=== PATIENT | male | born 1940 | race Caucasian/White ===

== ENCOUNTER → 2016-09-10 | Outpatient (CLI) | payer OTHER, BC ==
[~2016-09-10] VITALS: Ht 175.3 cm; Wt 81.6 kg
[~2016-09-10] MED LIST: ALLEGRA ALLERG180 MG PO; ALLEGRA180 MG PO; AMBIEN 5 MG TABL5 M1 PO; ASPIRIN325 PO; ASPRIMOX 325 M325 MG PO; BACLOFEN20 MG PO; CALCIUM + VITA1 EACH PO; CELEBREX 200 M200 M1 PO; CENTRUM SILVER1 EAC2 PO; GAS-X125 MG PO; JANUVIA 50 MG T50 MG PO; LIPITOR 20 MG T20 M1 PO; LISINOPRIL2.5 MG PO; METFORMIN HCL1000 MG PO; MIRALAX17 GM PO; OMEPRAZOLE20 MG PO; REGLAN 10 MG TA10 MG PO; TIZANIDINE HCL 22 M1 PO; VITAMIN D2000 UNIT PO; VITAMINC500 PO; VYTORIN 10-401 EACH PO; ZANAFLEX4 MG PO
--- NOTE | ~2016-09-10 | P ---
[facility] [address] [place] [address] PROCEDURE REPORT Name: BLESSING MARTINEZ Room #: REG [facility]#: [id number] Admission: 09/10/16 Attend Phys: Jovon Rutherford MD Discharge: Date of : 42 Report #: [id number] THIS REPORT FOR: //name// CC: Danya Rutherford DATE OF SERVICE: 09/10/2016 BRIEF HISTORY: The patient is a 76-year-old male with upper abdominal pain persistent on PPI therapy. PREOPERATIVE DIAGNOSIS: Upper abdominal pain. POSTOPERATIVE DIAGNOSIS: Mild diffuse gastritis. MEDICATIONS: Deep with Deep sedation with propofol per anesthesia. SPECIMEN: Biopsies of gastritis. ESTIMATED BLOOD LOSS: 3 mL. PROCEDURE: EGD with biopsy. FINDINGS: Prior to propofol sedation, procedure of upper endoscopy discussed with the patient as well potential risks and its complications. He indicates he understands and desires to proceed. DESCRIPTION OF PROCEDURE: This patient has C4 quadriplegia. Due to difficulty moving the patient, it was decided to go ahead and do the procedure while he was in his motorized chair. In motorized chair, he is able to recline nearly flat. When he was positioned, he was supine and his chest was at about a 20-degree angle, which was felt to be satisfactory. After sedation, the Netrepidi video endoscope was inserted in the cervical esophagus under direct vision without difficulty. Examination of this organ through its entire length revealed normal esophageal mucosa down the squamocolumnar junction. Squamocolumnar junction was inspected and noted to be unremarkable. A hiatus hernia was not seen. The squamocolumnar junction was at about 44 cm. Scope was advanced in the stomach, which was examined on end view as well as retroflexed views. There was a very mild gastritis with some very mild erythema. There may be some chronicity, but no ulcers were seen. There was no evidence of outlet obstruction. No retained solids or liquids in the stomach. There were no ulcers or erosions anywhere in the stomach. In addition, in the gastric body, there were multiple diminutive polyps with hyperplastic appearance. These appeared to be typical hyperplastic polyp extensive use of PPI. They had benign appearance. It was felt there was no need to remove these lesions. Upon retroflexion, the GE junction [address] [address] PROCEDURE REPORT Name: BLESSING MARTINEZ Room #: REG [facility]#: [id number] Admission: 09/10/16 Attend Phys: Jovon Rutherford MD Discharge: Date of : 42 Report #: [id number] was identified and noted to be unremarkable. The pylorus was normal. Duodenal bulb was normal. Postbulbar duodenal sweep was inspected and noted to be within normal limits. At that point, the scope was slowly withdrawn and careful circumferential views obtained. Biopsies obtained of the gastritis. The patient tolerated the procedure well. CONDITION OF THE PATIENT UPON DISCHARGE: Following procedure, the patient drowsy. He will be discharged home when fully ambulatory. INSTRUCTIONS TO THE PATIENT AND FAMILY AT THE TIME OF DISCHARGE: He does have some very mild mucosal changes which may or may not be significant. We will follow up on biopsies. As far as the cause of his pain, I do not identify specific etiology. Again, he is a C4 quadriplegic and he uses a word pressure. It is of note he does not have the pressure at nighttime when in bed. If not recently done, an ultrasound of the abdomen may be helpful as well. He should return to care of Dr. Danya Zacarias and return to see me as needed. Also discussed with the patient the option of a trial basis would be b.i.d. PPI. If symptoms persist, he is to return to see me in followup. By: 1101 1802 Jovon Rutherford MD /brigido
== END ==
LOC: GI 09:31
DX: K29.70 Gastritis, unspecified, without bleeding (principal)
CPT/HCPCS: 62110

== ENCOUNTER → 2016-12-17 | Outpatient (CLI) | payer OTHER, BC | LOC: HYPER 12-14 12:57 | DX: L89.893 Pressure ulcer of other site, stage 3 (principal); G82.21 Paraplegia, complete; I95.9 Hypotension, unspecified; L89.322 Pressure ulcer of left buttock, stage 2; G82.50 Quadriplegia, unspecified; Z87.891 Personal history of nicotine dependence; Z72.89 Other problems related to lifestyle ==

== ENCOUNTER → 2016-12-23 | Outpatient (CLI) | payer OTHER, BC | LOC: HYPER 06:54 | DX: E11.621 Type 2 diabetes mellitus with foot ulcer (principal); L97.521 Non-pressure chronic ulcer of other part of left foot limited to breakdown of skin; E11.622 Type 2 diabetes mellitus with other skin ulcer; L98.411 Non-pressure chronic ulcer of buttock limited to breakdown of skin; L89.892 Pressure ulcer of other site, stage 2; L89.312 Pressure ulcer of right buttock, stage 2; L89.322 Pressure ulcer of left buttock, stage 2; R60.9 Edema, unspecified; G82.21 Paraplegia, complete; I95.9 Hypotension, unspecified; Z87.891 Personal history of nicotine dependence; Z72.89 Other problems related to lifestyle ==

== ENCOUNTER → 2016-12-30 | Outpatient (CLI) | payer OTHER, BC | LOC: HYPER 07:05 | DX: E11.622 Type 2 diabetes mellitus with other skin ulcer (principal); L89.313 Pressure ulcer of right buttock, stage 3; L89.322 Pressure ulcer of left buttock, stage 2; L98.411 Non-pressure chronic ulcer of buttock limited to breakdown of skin; E11.621 Type 2 diabetes mellitus with foot ulcer; L89.893 Pressure ulcer of other site, stage 3; L97.521 Non-pressure chronic ulcer of other part of left foot limited to breakdown of skin; G82.21 Paraplegia, complete; I95.9 Hypotension, unspecified; S24.101D Unspecified injury at T1 level of thoracic spinal cord, subsequent encounter; Z87.891 Personal history of nicotine dependence; Z72.89 Other problems related to lifestyle ==

== ENCOUNTER → 2017-01-14 | Outpatient (CLI) | payer OTHER, BC | LOC: HYPER 07:04 | DX: L89.893 Pressure ulcer of other site, stage 3 (principal); L89.222 Pressure ulcer of left hip, stage 2; L89.213 Pressure ulcer of right hip, stage 3; E11.622 Type 2 diabetes mellitus with other skin ulcer; L97.821 Non-pressure chronic ulcer of other part of left lower leg limited to breakdown of skin; L98.491 Non-pressure chronic ulcer of skin of other sites limited to breakdown of skin; I95.9 Hypotension, unspecified; G82.50 Quadriplegia, unspecified; Z79.84 Long term (current) use of oral hypoglycemic drugs; Z87.891 Personal history of nicotine dependence; Z72.89 Other problems related to lifestyle ==

== ENCOUNTER → 2017-01-28 | Outpatient (CLI) | payer OTHER, BC | LOC: HYPER 07:02 | DX: E11.622 Type 2 diabetes mellitus with other skin ulcer (principal); L98.411 Non-pressure chronic ulcer of buttock limited to breakdown of skin; L89.322 Pressure ulcer of left buttock, stage 2; L89.312 Pressure ulcer of right buttock, stage 2; L89.893 Pressure ulcer of other site, stage 3; R60.9 Edema, unspecified; G82.21 Paraplegia, complete; I95.9 Hypotension, unspecified; Z79.84 Long term (current) use of oral hypoglycemic drugs; Z87.891 Personal history of nicotine dependence; Z72.89 Other problems related to lifestyle ==

== ENCOUNTER → 2017-02-18 | Outpatient (CLI) | payer OTHER, BC | LOC: HYPER 06:53 | DX: E11.622 Type 2 diabetes mellitus with other skin ulcer (principal); L98.411 Non-pressure chronic ulcer of buttock limited to breakdown of skin; E11.621 Type 2 diabetes mellitus with foot ulcer; L89.893 Pressure ulcer of other site, stage 3; L97.421 Non-pressure chronic ulcer of left heel and midfoot limited to breakdown of skin; L89.322 Pressure ulcer of left buttock, stage 2; L89.312 Pressure ulcer of right buttock, stage 2; G82.21 Paraplegia, complete; I95.9 Hypotension, unspecified; Z87.891 Personal history of nicotine dependence; Z72.89 Other problems related to lifestyle ==

== ENCOUNTER → 2017-03-02 | Outpatient (CLI) | payer OTHER, BC | LOC: HYPER 07:03 | DX: E11.622 Type 2 diabetes mellitus with other skin ulcer (principal); L89.893 Pressure ulcer of other site, stage 3; L89.322 Pressure ulcer of left buttock, stage 2; L89.312 Pressure ulcer of right buttock, stage 2; L98.411 Non-pressure chronic ulcer of buttock limited to breakdown of skin; Z79.84 Long term (current) use of oral hypoglycemic drugs; G82.21 Paraplegia, complete; I95.9 Hypotension, unspecified; Z87.891 Personal history of nicotine dependence; Z72.89 Other problems related to lifestyle ==

== ENCOUNTER → 2017-03-16 | Outpatient (CLI) | payer OTHER, BC | LOC: HYPER 03-10 11:05 | DX: L89.322 Pressure ulcer of left buttock, stage 2 (principal); L89.313 Pressure ulcer of right buttock, stage 3; L89.629 Pressure ulcer of left heel, unspecified stage; I95.9 Hypotension, unspecified; E11.621 Type 2 diabetes mellitus with foot ulcer; L97.421 Non-pressure chronic ulcer of left heel and midfoot limited to breakdown of skin; L98.411 Non-pressure chronic ulcer of buttock limited to breakdown of skin; G82.50 Quadriplegia, unspecified; Z87.891 Personal history of nicotine dependence; Z72.89 Other problems related to lifestyle; Z79.84 Long term (current) use of oral hypoglycemic drugs ==

== ENCOUNTER → 2017-04-01 | Outpatient (CLI) | payer OTHER, BC ==
[~2017-04-01] MED LIST changes: +TIZANIDINE HCL2 M1 PO
== END ==
LOC: HYPER 07:00
DX: S24.101D Unspecified injury at T1 level of thoracic spinal cord, subsequent encounter (principal); E11.622 Type 2 diabetes mellitus with other skin ulcer; L98.411 Non-pressure chronic ulcer of buttock limited to breakdown of skin; L89.313 Pressure ulcer of right buttock, stage 3; R60.9 Edema, unspecified; G82.21 Paraplegia, complete; I95.9 Hypotension, unspecified; Z79.84 Long term (current) use of oral hypoglycemic drugs; Z87.891 Personal history of nicotine dependence; Z72.89 Other problems related to lifestyle; X58.XXXD Exposure to other specified factors, subsequent encounter

== ENCOUNTER → 2017-05-05 | Outpatient (CLI) | payer OTHER, BC | LOC: HYPER 05-03 07:03 | DX: E11.622 Type 2 diabetes mellitus with other skin ulcer (principal); L98.411 Non-pressure chronic ulcer of buttock limited to breakdown of skin; L89.894 Pressure ulcer of other site, stage 4; I95.9 Hypotension, unspecified; Z79.84 Long term (current) use of oral hypoglycemic drugs; G82.52 Quadriplegia, C1-C4 incomplete; Z87.891 Personal history of nicotine dependence ==

== ENCOUNTER → 2017-05-12 | Outpatient (CLI) | payer OTHER, BC | LOC: HYPER 07:59 | DX: L89.213 Pressure ulcer of right hip, stage 3 (principal); E11.622 Type 2 diabetes mellitus with other skin ulcer; L98.491 Non-pressure chronic ulcer of skin of other sites limited to breakdown of skin; G82.21 Paraplegia, complete; I95.9 Hypotension, unspecified; G82.50 Quadriplegia, unspecified; Z87.891 Personal history of nicotine dependence; Z79.84 Long term (current) use of oral hypoglycemic drugs; Z72.89 Other problems related to lifestyle ==

== ENCOUNTER → 2017-05-26 | Outpatient (CLI) | payer OTHER, BC | LOC: HYPER 06:49 | DX: E11.622 Type 2 diabetes mellitus with other skin ulcer (principal); L98.411 Non-pressure chronic ulcer of buttock limited to breakdown of skin; L89.894 Pressure ulcer of other site, stage 4; R60.9 Edema, unspecified; G82.21 Paraplegia, complete; I95.9 Hypotension, unspecified; Z79.84 Long term (current) use of oral hypoglycemic drugs; Z87.891 Personal history of nicotine dependence; Z72.89 Other problems related to lifestyle ==

== ENCOUNTER → 2017-06-03 | Outpatient (CLI) | payer OTHER, BC | LOC: HYPER 06:28 | DX: E11.622 Type 2 diabetes mellitus with other skin ulcer (principal); L98.411 Non-pressure chronic ulcer of buttock limited to breakdown of skin; L89.313 Pressure ulcer of right buttock, stage 3; G82.21 Paraplegia, complete; Z79.84 Long term (current) use of oral hypoglycemic drugs; Z87.891 Personal history of nicotine dependence; Z72.89 Other problems related to lifestyle ==

== ENCOUNTER → 2017-06-21 | Outpatient (CLI) | payer OTHER, BC ==
[~2017-06-21] MED LIST changes: +ARTIFICIAL TEA1 EACH OPHTHALMIC; +ARTIFICIAL TEAR15 M1 OPHTHALMIC; +DRY MOUTH45 ML PO; +LEVAQUIN 750 M750 MG PO; +PROBIOTIC1 EAC5 PO
== END ==
LOC: HYPER 07:15
DX: L89.313 Pressure ulcer of right buttock, stage 3 (principal); G82.21 Paraplegia, complete; I95.9 Hypotension, unspecified; Z79.84 Long term (current) use of oral hypoglycemic drugs; Z87.891 Personal history of nicotine dependence; Z72.89 Other problems related to lifestyle

== ENCOUNTER → 2017-07-07 | Outpatient (CLI) | payer OTHER, BC | LOC: HYPER 06:48 | DX: E11.622 Type 2 diabetes mellitus with other skin ulcer (principal); L98.411 Non-pressure chronic ulcer of buttock limited to breakdown of skin; L89.313 Pressure ulcer of right buttock, stage 3; R60.9 Edema, unspecified; G82.21 Paraplegia, complete; I95.9 Hypotension, unspecified; Z79.84 Long term (current) use of oral hypoglycemic drugs; Z87.891 Personal history of nicotine dependence; Z72.89 Other problems related to lifestyle ==

== ENCOUNTER → 2017-07-14 | Outpatient (CLI) | payer OTHER, BC | LOC: HYPER 06:48 | DX: E11.622 Type 2 diabetes mellitus with other skin ulcer (principal); L98.411 Non-pressure chronic ulcer of buttock limited to breakdown of skin; L89.894 Pressure ulcer of other site, stage 4; R60.9 Edema, unspecified; G82.21 Paraplegia, complete; I95.9 Hypotension, unspecified; Z79.84 Long term (current) use of oral hypoglycemic drugs; Z87.891 Personal history of nicotine dependence; Z72.89 Other problems related to lifestyle ==

== ENCOUNTER 2017-07-26 05:23 | Inpatient (IN) | payer OTHER, BC ==
[~2017-07-26] VITALS: Ht 172.7 cm; Wt 64.4 kg
[2017-07-26] VITALS (10 sets, daily range): BP systolic 104–165; BP diastolic 56–82
--- NOTE | ~2017-07-26 | HC ---
[facility] [place] [place] [address] CONSULTATION Name: BLESSING MARTINEZ Room #: 404-P [facility] IN M.R.#: [id number] Admission: 07/26/17 Attend Phys: Harman Davis MD, Discharge: Date of : 42 Report #: [id number] THIS REPORT FOR: //name// CC: Danya Davis DATE OF SERVICE: 07/27/2017 CHIEF COMPLAINT: A right ischial pressure ulceration. HISTORY OF PRESENT ILLNESS: This is a 77-year-old male patient with a right ischial pressure ulceration. He had undergone local wound care and debridement and was admitted for diverting colostomy and additional debridement. PAST MEDICAL HISTORY: Positive for quadriplegia, diabetes, hypercholesterolemia and gastroesophageal reflux disease. MEDICATIONS: Include atorvastatin, fexofenadine, sitagliptin, baclofen, celecoxib, metformin, omeprazole, tizanidine and aspirin. ALLERGIES: None. FAMILY HISTORY: Noncontributory. SOCIAL HISTORY: Negative for alcohol or tobacco use. REVIEW OF SYSTEMS: CONSTITUTIONAL: The patient denies fever, chills or weight loss. NEUROLOGIC: The patient does have focal weakness. Denies numbness or tingling. ENT: The patient denies earache, nasal drainage or sore throat. CARDIOVASCULAR: The patient denies chest pain, palpitation or diaphoresis. PULMONARY: The patient denies cough or shortness of breath. GASTROINTESTINAL: The patient denies nausea, vomiting, diarrhea or abdominal pain. ORTHOPEDIC: The patient denies pain or swelling of the extremities. He is aware of the pressure ulceration. He does not have significant pain in this area. PHYSICAL EXAMINATION: VITAL SIGNS: At this time include pulse rate of 70, respiratory rate of 16, blood pressure 136/70 and temperature 98.0. GENERAL: This is a chronically ill-appearing male patient, who appears to be in minimal distress. HEENT: Head normocephalic. Nose and throat are clear. NECK: Supple. LUNGS: Clear. [facility] [address] [place] [address] CONSULTATION Name: BLESSING MARTINEZ Room #: 404-P [facility] IN ..#: [id number] Admission: 07/26/17 Attend Phys: Harman Davis MD, Discharge: Date of : 42 Report #: [id number] HEART: Regular. ABDOMEN: Soft. Bowel sounds are diminished. New colostomy is in place. EXTREMITIES: Examination of the gluteal region demonstrates a stage 4 pressure ulceration of the right ischial region. It is clean. It is deep and approaches close to bone. There is some odor, although the bowens appear to be clean and granulating. LABORATORY DATA: Includes sodium 130, potassium 3.7, chloride 96, CO2 of 27, BUN 15, creatinine 0.8 and glucose 153. White blood cell count 11.5 with a hemoglobin of 10.0 and hematocrit of 30.4. CLINICAL IMPRESSION: 1. Stage 4 right ischial pressure ulceration. 2. 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 3. Diabetes mellitus. 4. Recent placement of a colostomy. RECOMMENDATIONS: At this point in time, we will recommend quarter strength Dakin's moist gauze packing to the right ischial region, to be packed b.i.d. while in the hospital. He will need to be turned and repositioned every 2 hours. Aggressive nutrition with recently placed PEG tube. The patient and are both agreeable to current plan of care. I do appreciate being asked to see him in consultation. <ELECTRONICALLY SIGNED> By: Adryan Wolff MD 07/28/17 1250 [id number] [id number] Adryan Wolff MD /nt
--- NOTE | ~2017-07-26 | S ---
[facility] [place] [address] SURGICAL PATH RPT PROCEDURE Name: BLESSING MARTINEZ Room #: 404-P ADM IN M.R.#: [id number] Admission: 07/26/17 Date of : 44 Discharge: Report #: [id number] Path Case #: [id number] PATHOLOGY REPORT COLLECTION DATE: 07/26/2017 RECEIVED DATE: 07/26/2017 SUBMITTING PHYS: Dr. Harman Davis OTHER PHYS: Dr Danya Zacarias SPECIMEN(S) RECEIVED: A.Right ischial decubitus tissue * * * * * * * * * * * * FINAL DIAGNOSIS: Right ischial decubitus tissue, debridement: - Fibrinoid necrosis as well as degeneration associated with marked acute inflammation, consistent with a decubitus tissue. (IUV:pit; 07/27/2017) PATHOLOGIST: Autumn Almeida M.D. REPORT ELECTRONICALLY SIGNED BY: Autumn Almeida M.D. DATE/TIME: 07/27/2017 14:45 * * * * * * * * * * * * GROSS PATHOLOGY: The specimen is received in formalin, labeled "Blessing Martinez, right ischial decubitus tissue". Received are multiple irregular segments of pale yellow-jolly possible skin admixed with yellow-matos to dark brown soft tissue measuring 3.7 x 2.7 x 1.0 cm in aggregate dimensions. Head Of Product tissue is submitted in cassette A1. (DAC; 07/26/2017) CLINICAL HISTORY: Sacral wound INITIAL CPT CODE(S): A; 21771 Professional services performed by [facility] at [facility] [address] [facility] [address], [place] [address] Technical services performed by [facility] at [address] [place] [address]. [facility] [address] [place] [address] SURGICAL PATH RPT PROCEDURE Name: BLESSING MARTINEZ Room #: 404-P ADM IN M.R.#: [id number] Admission: 07/26/17 Date of : 42 Discharge: Report #: [id number] Path Case #: [id number] [place] [id number] [address] PHONE: [phone] DIRECTOR: Joe Aaron M.D. * * * END OF REPORT * * *
--- NOTE | ~2017-07-26 | O ---
[facility] [address] [place] [address] OPERATIVE REPORT Name: BLESSING MARTINEZ Room #: 404-P [facility] IN .R.#: [id number] Admission: 07/26/17 Attend Phys: Harman Davis MD, Discharge: Date of : 42 Report #: [id number] THIS REPORT FOR: //name// CC: Danya Davis DATE OF SERVICE: 07/26/2017 PREOPERATIVE DIAGNOSES: 1. 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 2. Chronic incomplete flaccid quadriplegia. 3. Diabetes mellitus. 4. Severe protein-calorie malnutrition. POSTOPERATIVE DIAGNOSES: 1. 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 2. Chronic incomplete flaccid quadriplegia. 3. Diabetes mellitus. 4. Severe protein-calorie malnutrition. PROCEDURES PERFORMED: 1. Excisional debridement of skin, subcutaneous tissue, muscle and bone of a right ischial decubitus wound ultimately measuring 3 x 3 cm in dimension (9 square cm). Preoperative wound measurements were similar as the overall dimensions of the wound did not change substantially. 2. Esophagogastroduodenoscopy (EGD) with percutaneous endoscopic gastrostomy (PEG) tube placement. 3. Diverting loop transverse colostomy. SURGEON: Harman Davis M.D. WATER INSPECTOR: ERICKA Jain. ANESTHESIA: General endotracheal anesthesia. ESTIMATED BLOOD LOSS: Minimal (less than 5 mL). COMPLICATIONS: None appreciated. SPECIMENS: All excised tissue to pathology including bone to microbiology to rule out osteomyelitis. INDICATIONS: The patient is a 77-year-old male with quadriplegia and a long-term history of a nonhealing stage IV right ischial decubitus wound. The patient underwent debridement of this wound approximately 3 months ago, but unfortunately has had recurrent necrosis even though the overall wound has [address] [address] OPERATIVE REPORT Name: BLESSING MARTINEZ Room #: 404-P [facility] IN [facility].#: [id number] Admission: 07/26/17 Attend Phys: Harman Davis MD, Discharge: Date of : 42 Report #: [id number] contracted nicely in dimension. At the base of the wound, he has gross necrosis and has feculent stooling within the wound consistently as well as severe protein-calorie malnutrition, thereby indicating the need for debridement, PEG tube placement for enteral supplementation as well as diverting colostomy to divert the fecal stream to prevent chronic ongoing contamination. DESCRIPTION OF PROCEDURE: After explaining the risks, benefits and alternatives of the procedure with the patient in detail in the preoperative holding area and obtaining written consent, the patient was brought to the operating room and placed supine on the operating room table. After conducting a thorough timeout procedure verifying correct patient and procedure, the patient was given general endotracheal anesthesia. Once adequate anesthesia was obtained, his SCDs were hooked up to pneumatic compression device. He was given a preoperative dose of antibiotics in line with the SCIP protocol. The patient was now positioned in the prone position with all pressure points appropriately padded. His right ischial wound was prepped and draped in standard surgical sterile fashion. Electrocautery was now used to circumferentially debride all skin, subcutaneous tissue and nonviable muscle from the periphery of the wound carrying it down to the depths of the wound where there was necrotic tissue overlying bone. This was excised as well including periosteum, which was sent for microbiologic analysis. Hemostasis was assured with electrocautery and there was no further necrotic tissue seen at the completion of the debridement. Thrombin was sprayed into the wound, it was packed tightly with sterile Milena wrap. He was then dressed with 4 x 4s, ABDs and Medipore tape. The patient was then positioned back on the operating room table in the supine position and the left upper quadrant was prepped and draped in standard surgical sterile fashion. The [employer] upper endoscope was used to intubate the oropharynx, was traversed down into the esophagus with ease. I was able to identify and intubate the pylorus and the scope was advanced to second portion of duodenum. Slow and careful withdrawal of the scope showed no evidence of duodenitis, esophagitis, mass lesions or ulcerations. There was mild gastritis near the antrum of the stomach with a few small hyperplastic polyps, but no pathology was seen otherwise. Retroflexion view did show a 2-cm hiatal hernia. Scope was straightened out in the gastric lumen where the stomach was fully insufflated. The lights were turned out in the operating room and an appropriate point was selected for the PEG tube placement in the left upper quadrant as we had easy transillumination through the abdominal wall as well as utilizing manual external ballottement to palpate the appropriate side of placement. This site was anesthetized with 3 mL of 1% plain lidocaine and a 7-mm transverse skin incision was made with a #11 bladed scalpel again after sterilely prepping and draping the abdomen. The needle sheath apparatus was then placed through this incision site, directed through the anterior gastric wall under direct vision whereby the needle was then removed. A wire was placed down the sheath and this was grasped with a loop snare down the EGD scope and the entire EGD scope was removed via the oropharynx, bringing the wire through with it. A 20-Honduran pull type PEG tube was then affixed to the wire, which was then pulled down the mouth and through [facility] [address] [place] [address] OPERATIVE REPORT Name: BLESSING MARTINEZ Room #: 404-P ADM IN M.R.#: [id number] Admission: 07/26/17 Attend Phys: Harman Davis MD, Discharge: Date of : 42 Report #: [id number] the anterior gastric and anterior abdominal bowens. The wire was cut off and the external flange, clamp and end adaptor was applied in standard fashion. The EGD scope was used to intubate the oropharynx once again, traversed down into the stomach where the internal flange was seen to reside against the gastric wall at 3.5 cm at the skin level externally. This was to provide a seal, but without being too tight that would be at risk for ischemia or necrosis and/or erosion. The stomach was now fully desufflated with the EGD scope removed, passed off the field and turned my attention to the colostomy portion of the procedure. The abdomen was once again sterilely prepped and draped in standard surgical sterile fashion. #10 bladed scalpel was used to create a 3-cm longitudinal incision in the right mid abdomen, 2 cm cephalad to the umbilicus and 2 cm to the patient's right. Electrocautery was used to carry this down through skin and subcutaneous tissues to ensure hemostasis until I arrived upon the anterior rectus fascia. This was scored longitudinally as well, revealing the right rectus muscle posteriorly. The rectus muscle was split and the posterior sheath was identified and elevated between hemostats and was opened with Metzenbaum scissors. A finger was then placed in the abdomen and I proceeded to open the entire fascial incision for the 3 cm spread. The transverse colon was seen to reside immediately posterior and this was grasped with a Teo clamp and elevated into the wound. A window was made in the mesocolon and a finger was placed through this. A colostomy retention bar was then placed through the window in the mesentery, which was anchored to the skin using 2-0 nylon in standard fashion. The antimesenteric aspect of the colon was now opened with electrocautery to create a colotomy and this colotomy was extended longitudinally for approximately 3 cm using a hemostat in the colotomy to prevent injury to the back wall of the colon from thermal spread. I now matured the colostomy using 4 interrupted sutures of 3-0 Vicryl, 2 on the superior aspect, 2 on the inferior aspect, 1 on either side of the bar taking full thickness bites of the colon and anchoring it to the dermis on either side of the bar. I then completed maturation of the colostomy using additional 3-0 Vicryl in standard running fashion to anchor the mucocutaneous juncture on both the right and left sides of the colostomy. This was done, taking bites of dermis as well as full thickness bites of the colon in a running fashion. This gave us an excellently oriented diverting loop transverse colostomy. Digital finger intubation of both afferent and efferent limbs showed them to both be patent to a subfascial level. A sterile colostomy appliance was then applied. At the end of the procedure, all instrument, needle and sponge counts were correct. The patient tolerated the procedure without incident, was awakened in the operating room and transitioned to the recovery room in stable condition with no apparent complications. <ELECTRONICALLY SIGNED> By: Harman Davis MD, FACS 07/26/17 1538 1033 1111 Harman Davis MD, FACS /nt
[~2017-07-26 05:23] MED LIST changes: -ARTIFICIAL TEAR15 M1 OPHTHALMIC
[2017-07-27 04:00] VITALS: BP 126/79
[2017-07-27 06:06] LABS: ABSOLUTE NEUTROPHILS 8.9 thou/uL (1.4-8.2); BASOPHILS 0.3 % (0.0-2.0); EOSINOPHILS 0.3 % (0.0-3.0); HEMATOCRIT 30.4 % (42.0-52.0); LYMPHOCYTES 15.4 % (24.0-44.0); MCH 25.5 pg (26.0-34.0); MCHC 32.9 g/dL (28.0-37.0); MCV 77.3 fL (80.0-100.0); MONOCYTES 6.6 % (1.0-8.0); PLATELET COUNT 389 thou/uL (150-400); POLYS 77.4 % (36.0-66.0); RBC 3.94 mil/uL (4.50-6.00); RDW 15.3 % (10.5-14.5); WBC 11.5 thou/uL (4.0-11.0)
[2017-07-27 06:27] LABS: ALBUMIN 1.9 g/dL (3.4-5.0); CALCIUM 8.8 mg/dL (8.5-10.1); CREATININE 0.8 mg/dL (0.7-1.3); POTASSIUM 3.7 mmol/L (3.5-5.1); TOTAL BILIRUBIN 0.3 mg/dL (<0.1-1.0); TOTAL PROTEIN 6.2 g/dL (6.4-8.2)
[2017-07-27 07:13] VITALS: BP 111/57
[2017-07-27 15:30] VITALS: BP 136/73
[2017-07-27 20:00] VITALS: BP 127/61
[2017-07-28 04:00] VITALS: BP 100/40
[2017-07-28 07:50] VITALS: BP 124/56
[2017-07-28 15:10] VITALS: BP 98/58
[2017-07-28 15:20] VITALS: BP 124/56
== END 2017-07-28 19:24 | disposition home health service (06) | DRG 981 ==
LOC: TBA 05:23 → 4N 05:23 → PRE 08:57 → 4N 11:36
PROVIDERS: Surgery
PROC: 0QB20ZZ Excision of Right Pelvic Bone, Open Approach (ICD-10-PCS; principal; 2017-07-26)
PROC: 0DH63UZ Insertion of Feeding Device into Stomach, Percutaneous Approach (ICD-10-PCS; principal; 2017-07-26)
PROC: 0D1L0Z4 Bypass Transverse Colon to Cutaneous, Open Approach (ICD-10-PCS; principal; 2017-07-26)
DX: L89.214 Pressure ulcer of right hip, stage 4 (principal); E43 Unspecified severe protein-calorie malnutrition; G82.52 Quadriplegia, C1-C4 incomplete; G82.54 Quadriplegia, C5-C7 incomplete; K63.5 Polyp of colon; E11.9 Type 2 diabetes mellitus without complications; E78.00 Pure hypercholesterolemia, unspecified; K21.9 Gastro-esophageal reflux disease without esophagitis; K29.70 Gastritis, unspecified, without bleeding; Z79.899 Other long term (current) drug therapy; Z79.84 Long term (current) use of oral hypoglycemic drugs; Z68.21 Body mass index [BMI] 21.0-21.9, adult; Z91.048 Other nonmedicinal substance allergy status
CPT/HCPCS: 10790; 50010; 50101; 50386; 50403; 56524; 56525; 62110; 62900

== ENCOUNTER 2017-08-04 20:01 | Inpatient (IN) | payer OTHER, BC ==
[~2017-08-04] VITALS: Ht 172.7 cm; Wt 78.9 kg
--- NOTE | ~2017-08-04 | HC ---
[facility] [address] [address] CONSULTATION Name: BLESSING MARTINEZ Room #: 362-P [facility] IN M.R.#: [id number] Admission: 08/04/17 Attend Phys: Samuel Abbott MD Discharge: 08/12/17 Date of : 42 Report #: [id number] THIS REPORT FOR: //name// CC: NO PCP Samuel Abbott DATE OF SERVICE: 08/05/2017 REASON FOR CONSULTATION: Hyponatremia. HISTORY OF PRESENT ILLNESS: This 77-year-old gentleman with flaccid quadriplegia secondary to a previous fall a couple of years ago. He had a tunneling right ischial wound, which became troublesome and necrotic over the last several months, he underwent a surgical procedure including a diverting colostomy, wound debridement, and PEG tube placement within the last couple of weeks. After going home, he had a poor appetite. He continued to receive water. He is on Celebrex and he developed hyponatremia with a serum sodium down to 105 without much of an appreciable way of mental status changes. PAST MEDICAL HISTORY: Quadriplegia, diabetes, and spasms. FAMILY HISTORY: Please see old charts. SOCIAL HISTORY: He has caregivers around the clock. His is there at home with him. REVIEW OF SYSTEMS: In general, he has been feeling poorly. He has not been taking much p.o. He denies shortness of breath. There is no chest pain or history of cardiac disease or palpitations. He is not having too much in the way of pain. He is a bit anxious and depressed. PHYSICAL EXAMINATION: GENERAL: This is a chronically ill-appearing gentleman, he is answering some questions. He is alert and oriented. SKIN: Unremarkable. SKELETAL: Flaccid quadriplegia, PEG tube, diverting colostomy and suprapubic catheter all noted. HEENT: Extraocular movements are full. Vision intact. Mucous membranes dry. NECK: Supple. CHEST: Shallow. HEART: Regular. ABDOMEN: Soft. EXTREMITIES: Show no peripheral edema. LABORATORY DATA: Hemoglobin 11.2, sodium 107, potassium 4, chloride 78, bicarbonate 26, BUN 17, and creatinine 0.4. [facility] [address] [place] [address] CONSULTATION Name: BLESSING MARTINEZ Room #: 362-P [facility] IN M.R.#: [id number] Admission: 08/04/17 Attend Phys: Samuel Abbott MD Discharge: 08/12/17 Date of : 42 Report #: [id number] ASSESSMENT: 1. Hyponatremia, likely in the setting of the Celebrex, decreased free water clearance, possibly some volume depletion as well. has been given back some volume, sodium is up very marginally, I will give him just a little bit of 3% saline. I would like to start giving him some tube feedings without any water and likely the hypertonic nature of the of tube feedings down his PEG tube will help correct. No free water will be given. I suspect he will do okay. Once he is off the Celebrex, I suspect his free water clearance will improve hopefully. 2. Decubitus ulcer with recent surgery. 3. Recent diverting colostomy. 4. Flaccid quadriplegia. 5. History of diabetes mellitus. <ELECTRONICALLY SIGNED> By: Aj Law MD 08/17/17 1706 1033 1101 Aj Law MD /nt
--- NOTE | ~2017-08-04 | HC ---
[facility] [address] [address] CONSULTATION Name: BLESSING MARTINEZ Room #: 362-P [facility] IN .R.#: [id number] Admission: 08/04/17 Attend Phys: Samuel Abbott MD Discharge: Date of : 44 Report #: [id number] THIS REPORT FOR: //name// CC: NO PCP Samuel Abbott DATE OF SERVICE: 08/05/2017 CHIEF COMPLAINT: Stage IV pressure ulceration. 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 He has undergone recent debridement as well as PEG tube placement and diverting colostomy. He has been having some bloating and possible ileus at home but was having increasing weakness, presented to the Emergency Department, was found to have severe hyponatremia with a serum sodium level of 105. He was subsequently admitted to the hospital for management and replacement of sodium. I have been asked to see him with regard to ongoing wound care. The patient is a little more lethargic than usual, is slow to answer questions. 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 He has a history of diabetes mellitus and hypercholesterolemia. MEDICATIONS: Include atorvastatin, fexofenadine, sitagliptin, baclofen, Celebrex, metformin, omeprazole, tizanidine and aspirin. ALLERGIES: None. FAMILY HISTORY: Noncontributory. SOCIAL HISTORY: Negative for alcohol or tobacco use, and accompanied by his . REVIEW OF SYSTEMS: CONSTITUTIONAL: Denies fever, chills or weight loss. NEUROLOGICAL: The patient is a quadriplegic. ENT: The patient denies earache, nasal drainage or sore throat. CARDIOVASCULAR: The patient denies pain, palpitations or diaphoresis. PULMONARY: The patient denies cough or shortness of breath. GASTROINTESTINAL: The patient complains of abdominal bloating. No significant pain at this time. GENITOURINARY: The patient denies frequency, urgency of urination. ORTHOPEDIC: The patient is aware of the pressure ulcer of the ischium. [facility] [address] [place] [address] CONSULTATION Name: BLESSING MARTINEZ Room #: 362-P [facility] IN .R.#: [id number] Admission: 08/04/17 Attend Phys: Samuel Abbott MD Discharge: Date of : 44 Report #: [id number] Other systems in a 14-point review of systems are negative. PHYSICAL EXAMINATION: VITAL SIGNS: At this time include pulse rate of 85, respiration of 16, blood pressure 133/76 and temperature 97.5. GENERAL: This is a chronically ill-appearing male patient who appears to be in minimal distress. HEENT: Examination of the head normocephalic. Extraocular movements clear. Nose and throat are clear. NECK: Supple. LUNGS: Clear. HEART: Regular rhythm. ABDOMEN: Soft, slightly distended. Pelvic region demonstrates stage 4 pressure ulceration of the right ischium, which appears to be fairly clean, was granulating well, some fibrous connective tissue seen in the deep base, is not overtly infected. NEUROLOGICAL: The patient has a flaccid type paralysis. LABORATORY DATA: Includes sodium 107, potassium 4.0, chloride 78, CO2 26, BUN 17, creatinine 0.4 and glucose 102. Total protein 4.9. Albumin is low at 1.6. He is actually decreased from his previous hospitalization. White blood cell count 8.7, hemoglobin 11.2 and hematocrit 32.6. CLINICAL IMPRESSION: 1. Stage 4 right ischial pressure ulceration status post surgical debridement. 2. Status post diverting colostomy and status post percutaneous endoscopic gastrostomy tube placement. 3. Severe protein-calorie malnutrition. 4. Severe hyponatremia. RECOMMENDATIONS: At this point in time, patient will be placed on low air loss mattress or a bariatric type bed with turned and repositioned every 2 hours. Fills Puracol Ag to the right ischial ulceration. He will need a slow replacement of sodium is being managed by Internal Medicine and Nephrology. Prevalon boots while he is in bed all questions have been answered. I appreciate being asked to see him in consultation. <ELECTRONICALLY SIGNED> By: Adryan Wolff MD 08/06/17 0755 [id number] 56 Adryan Wolff MD /nt
--- NOTE | ~2017-08-04 | EKG ---
[address] [address] ELECTROCARDIOGRAM REPORT Name: BLESSING MARTINEZ Room #: 362-P ADM IN M.R.#: [id number] Admission: 08/04/17 Attend Phys: Samuel Abbott MD Discharge: Date of : 44 Report #: [id number] THIS REPORT FOR: //name// [facility] ED Test Date: 2017-08-04 Test Time: 20:20:29 Pat Name: BLESSING MARTINEZ Department: Room: 362 Gender: M Stitching Department Supervisor: MZOOK : 1940 Requested By: Kelley Langston Order Number: [id number] MD: Thiago Shore Measurements Intervals [place] Rate: 83 P: 70 SC: 174 QRS: 55 QRSD: 95 T: 44 QT: 366 QTc: 430 Interpretive Statements Sinus rhythm No significant abnormality Compared to ECG 04/22/2017 06:47:55 No significant change was found Electronically Signed On 08-05-2017 8:44:36 [employer] by Thiago Shore [email or web address] <ELECTRONICALLY SIGNED> By: Thiago Shore MD, LOCATED WITHIN [facility] 08/05/17 0844 19 19 Thiago Shore MD, FACC /EPI
[2017-08-04 20:02] VITALS: BP 153/79
[2017-08-04 20:37] LABS: URINE BILIRUBIN NEGATIVE (Negative); URINE BLOOD 2+ (Negative); URINE CLARITY CLEAR; URINE COLOR YELLOW; URINE GLUCOSE-RANDOM* NEGATIVE (Negative); URINE KETONES NEGATIVE (Negative); URINE LEUKOCYTES NEGATIVE (Negative); URINE NITRITE NEGATIVE (Negative); URINE PROTEIN (DIPSTICK) 2+ (Negative); URINE UROBILINOGEN 0.2 E.U./dl (0.2-1.0)
[2017-08-04 20:38] LABS: BASOPHILS 0.2 % (0.0-2.0); EOSINOPHILS 1.1 % (0.0-3.0); HEMATOCRIT 32.6 % (42.0-52.0); HEMOGLOBIN 11.2 gm/dL (14.0-18.0); LYMPHOCYTES 18.9 % (24.0-44.0); MCH 25.7 pg (26.0-34.0); MCHC 34.3 g/dL (28.0-37.0); MONOCYTES 11.2 % (1.0-8.0); PLATELET COUNT 447 thou/uL (150-400); POLYS 68.6 % (36.0-66.0); RBC 4.35 mil/uL (4.50-6.00); RDW 15.2 % (10.5-14.5); WBC 8.7 thou/uL (4.0-11.0)
[2017-08-04 20:48] LABS: BACTERIA None Seen /HPF (None Seen); CALCIUM OXALATE 4-10 Moderate /LPF (None Seen); HYALINE CASTS 0-3 Few /LPF (None Seen); MUCUS 4-6 Moderate strn/LPF (None Seen); SQUAMOUS 0-3 Few /LPF (0-3); URINE RBC 3-10 Few /HPF (0-2); URINE WBC 6-15 Few /HPF (0-5)
[2017-08-04 20:52] LABS: ALBUMIN 1.6 g/dL (3.4-5.0); CALCIUM 6.9 mg/dL (8.5-10.1); CREATININE 0.5 mg/dL (0.7-1.3); POTASSIUM 3.9 mmol/L (3.5-5.1); TOTAL BILIRUBIN 0.2 mg/dL (<0.1-1.0); TOTAL PROTEIN 4.9 g/dL (6.4-8.2)
[2017-08-04 21:17] LABS: CHOLESTEROL 67 mg/dL (<200); HDL CHOLESTEROL 27 mg/dL (>40); LDL CHOLESTEROL 29 mg/dL (<100); TC:HDL 2.5 Ratio (Not establshd); TRIGLYCERIDE 59 mg/dL (<150); VLDL 12 mg/dL (<40)
[2017-08-04 21:58] VITALS: BP 174/81
[2017-08-04 22:15] VITALS: BP 152/85
[2017-08-05 04:00] VITALS: BP 145/84
[2017-08-05 05:42] LABS: CALCIUM 6.8 mg/dL (8.5-10.1); CREATININE 0.4 mg/dL (0.7-1.3)
[2017-08-05 08:17] VITALS: BP 142/81
[2017-08-05 11:34] VITALS: BP 133/76
[2017-08-05 16:49] VITALS: BP 139/80
[2017-08-05] MEDS ORDERED: ARTIFICIAL TEAR15 M1 OPHTHALMIC (17:35)
[2017-08-05 18:27] LABS: ALBUMIN 1.4 g/dL (3.4-5.0); CALCIUM 6.3 mg/dL (8.5-10.1); CREATININE 0.4 mg/dL (0.7-1.3); PHOSPHORUS 2.5 mg/dL (2.5-4.9); POTASSIUM 3.5 mmol/L (3.5-5.1)
[2017-08-05 19:52] VITALS: BP 143/82
[2017-08-06 03:50] VITALS: BP 147/84
[2017-08-06 06:51] LABS: ABSOLUTE NEUTROPHILS 6.8 thou/uL (1.4-8.2); BASOPHILS 0.2 % (0.0-2.0); EOSINOPHILS 1.4 % (0.0-3.0); HEMATOCRIT 30.8 % (42.0-52.0); HEMOGLOBIN 10.8 gm/dL (14.0-18.0); LYMPHOCYTES 16.9 % (24.0-44.0); MCH 26.3 pg (26.0-34.0); MCV 75.1 fL (80.0-100.0); MONOCYTES 10.4 % (1.0-8.0); PLATELET COUNT 451 thou/uL (150-400); POLYS 71.1 % (36.0-66.0); RDW 15.2 % (10.5-14.5); WBC 9.6 thou/uL (4.0-11.0)
[2017-08-06 07:03] LABS: ALBUMIN 1.5 g/dL (3.4-5.0); CALCIUM 6.7 mg/dL (8.5-10.1); CREATININE 0.4 mg/dL (0.7-1.3); PHOSPHORUS 2.7 mg/dL (2.5-4.9); POTASSIUM 3.5 mmol/L (3.5-5.1)
[2017-08-06 07:59] VITALS: BP 149/81
[2017-08-06 11:31] VITALS: BP 150/74
[2017-08-06 15:30] VITALS: BP 146/80
[2017-08-06 20:10] VITALS: BP 138/72
[2017-08-07 04:58] LABS: ALBUMIN 1.5 g/dL (3.4-5.0); CALCIUM 6.9 mg/dL (8.5-10.1); CREATININE 0.4 mg/dL (0.7-1.3); POTASSIUM 3.3 mmol/L (3.5-5.1); TOTAL BILIRUBIN 0.2 mg/dL (<0.1-1.0); TOTAL PROTEIN 4.4 g/dL (6.4-8.2)
[2017-08-07 05:00] VITALS: BP 142/75
[2017-08-07 07:40] VITALS: BP 145/75
[2017-08-07 11:17] VITALS: BP 141/73
[2017-08-07 15:19] VITALS: BP 148/76
[2017-08-07 19:53] VITALS: BP 145/72
[2017-08-08 04:05] VITALS: BP 151/81
[2017-08-08 07:22] VITALS: BP 146/76
[2017-08-08 07:22] LABS: ALBUMIN 1.5 g/dL (3.4-5.0); CALCIUM 7.2 mg/dL (8.5-10.1); CREATININE 0.4 mg/dL (0.7-1.3); PHOSPHORUS 2.8 mg/dL (2.5-4.9); POTASSIUM 3.5 mmol/L (3.5-5.1)
[2017-08-08 11:41] VITALS: BP 133/72
[2017-08-08 15:46] VITALS: BP 139/73
[2017-08-08 20:32] VITALS: BP 133/61
[2017-08-09 04:15] VITALS: BP 157/86
[2017-08-09 05:42] LABS: BASOPHILS 0.5 % (0.0-2.0); EOSINOPHILS 1.9 % (0.0-3.0); HEMATOCRIT 30.6 % (42.0-52.0); HEMOGLOBIN 10.4 gm/dL (14.0-18.0); LYMPHOCYTES 21.3 % (24.0-44.0); MCH 25.8 pg (26.0-34.0); MCV 76.1 fL (80.0-100.0); MONOCYTES 8.2 % (1.0-8.0); PLATELET COUNT 478 thou/uL (150-400); POLYS 68.1 % (36.0-66.0); RBC 4.02 mil/uL (4.50-6.00); RDW 15.3 % (10.5-14.5); WBC 11.7 thou/uL (4.0-11.0)
[2017-08-09 05:57] LABS: ALBUMIN 1.5 g/dL (3.4-5.0); CALCIUM 7.2 mg/dL (8.5-10.1); CREATININE 0.5 mg/dL (0.7-1.3); MAGNESIUM 1.5 mg/dL (1.8-2.4); PHOSPHORUS 2.9 mg/dL (2.5-4.9)
[2017-08-09 08:12] VITALS: BP 137/71
[2017-08-09 11:44] VITALS: BP 131/56
[2017-08-09 15:27] VITALS: BP 129/67
[2017-08-09 19:39] VITALS: BP 133/67
[2017-08-10 03:50] VITALS: BP 132/69
[2017-08-10 06:44] LABS: ALBUMIN 1.5 g/dL (3.4-5.0); CALCIUM 7.2 mg/dL (8.5-10.1); CREATININE 0.5 mg/dL (0.7-1.3); MAGNESIUM 1.7 mg/dL (1.8-2.4); POTASSIUM 4.1 mmol/L (3.5-5.1)
[2017-08-10 07:06] VITALS: BP 133/70
[2017-08-10 07:11] LABS: FOLIC ACID 14.8 ng/mL (8.6-58.9); TSH 4.518 uIU/mL (0.358-3.740)
[2017-08-10 11:17] VITALS: BP 129/66
[2017-08-10 16:00] VITALS: BP 136/72
[2017-08-10 19:06] VITALS: BP 128/65
[2017-08-11 04:09] VITALS: BP 138/68
[2017-08-11 06:22] LABS: ABSOLUTE NEUTROPHILS 7.6 thou/uL (1.4-8.2); BASOPHILS 0.7 % (0.0-2.0); EOSINOPHILS 2.4 % (0.0-3.0); HEMATOCRIT 29.9 % (42.0-52.0); HEMOGLOBIN 10.1 gm/dL (14.0-18.0); LYMPHOCYTES 24.1 % (24.0-44.0); MCH 25.9 pg (26.0-34.0); MCHC 33.7 g/dL (28.0-37.0); MCV 76.9 fL (80.0-100.0); MONOCYTES 8.5 % (1.0-8.0); PLATELET COUNT 484 thou/uL (150-400); POLYS 64.3 % (36.0-66.0); RBC 3.89 mil/uL (4.50-6.00); RDW 15.7 % (10.5-14.5); WBC 11.8 thou/uL (4.0-11.0)
[2017-08-11 06:45] LABS: ALBUMIN 1.6 g/dL (3.4-5.0); CALCIUM 7.5 mg/dL (8.5-10.1); CREATININE 0.6 mg/dL (0.7-1.3); PHOSPHORUS 3.1 mg/dL (2.5-4.9); POTASSIUM 4.4 mmol/L (3.5-5.1)
[2017-08-11 07:53] VITALS: BP 139/69
[2017-08-11 12:50] VITALS: BP 137/65
[2017-08-11 16:05] VITALS: BP 138/73
[2017-08-11 19:35] VITALS: BP 127/71
[2017-08-12 02:52] VITALS: BP 145/72
[2017-08-12 08:12] VITALS: BP 139/72
[2017-08-12 09:59] LABS: ABSOLUTE NEUTROPHILS 7.5 thou/uL (1.4-8.2); BASOPHILS 0.6 % (0.0-2.0); EOSINOPHILS 3.1 % (0.0-3.0); HEMATOCRIT 27.9 % (42.0-52.0); HEMOGLOBIN 9.5 gm/dL (14.0-18.0); LYMPHOCYTES 21.5 % (24.0-44.0); MCH 26.2 pg (26.0-34.0); MCHC 33.8 g/dL (28.0-37.0); MCV 77.5 fL (80.0-100.0); MONOCYTES 8.9 % (1.0-8.0); PLATELET COUNT 460 thou/uL (150-400); POLYS 65.9 % (36.0-66.0); WBC 11.5 thou/uL (4.0-11.0)
[2017-08-12 10:11] LABS: CALCIUM 8.1 mg/dL (8.5-10.1); CREATININE 0.6 mg/dL (0.7-1.3); POTASSIUM 4.6 mmol/L (3.5-5.1)
[2017-08-12 10:16] LABS: MAGNESIUM 1.8 mg/dL (1.8-2.4); PHOSPHORUS 3.7 mg/dL (2.5-4.9)
[2017-08-12 12:01] VITALS: BP 133/75
[2017-08-12 12:51] VITALS: BP 133/75
== END 2017-08-12 15:52 | DRG 640 ==
LOC: ER 20:01 → EROBS 21:20 → 3W 21:20
PROVIDERS: Family Medicine; Hospitalist; Internal Medicine Nephrology; Nurse Practitioner Acute Care; Physician Assistant; Registered Nurse
DX: E87.1 Hypo-osmolality and hyponatremia (principal); G82.50 Quadriplegia, unspecified; E43 Unspecified severe protein-calorie malnutrition; G93.40 Encephalopathy, unspecified; L89.304 Pressure ulcer of unspecified buttock, stage 4; K56.7 Ileus, unspecified; N39.0 Urinary tract infection, site not specified; K21.9 Gastro-esophageal reflux disease without esophagitis; E78.5 Hyperlipidemia, unspecified; E11.649 Type 2 diabetes mellitus with hypoglycemia without coma; R53.81 Other malaise; F03.90 Unspecified dementia, unspecified severity, without behavioral disturbance, psychotic disturbance, mood disturbance, and anxiety; Z87.891 Personal history of nicotine dependence; Z68.26 Body mass index [BMI] 26.0-26.9, adult; Z88.8 Allergy status to other drugs, medicaments and biological substances; Z93.3 Colostomy status
CPT/HCPCS: 10879

== ENCOUNTER → 2017-09-15 | Outpatient (CLI) | payer OTHER, BC ==
[~2017-09-15] MED LIST changes: +ARTIFICIAL TEAR15 M1 OPHTHALMIC
== END ==
LOC: HYPER 08-11 13:07
DX: E11.621 Type 2 diabetes mellitus with foot ulcer (principal); L89.313 Pressure ulcer of right buttock, stage 3; L98.411 Non-pressure chronic ulcer of buttock limited to breakdown of skin; L84 Corns and callosities; G82.50 Quadriplegia, unspecified; Z87.891 Personal history of nicotine dependence; Z79.84 Long term (current) use of oral hypoglycemic drugs

== ENCOUNTER → 2017-10-13 | Outpatient (CLI) | payer OTHER, BC | LOC: HYPER 06:43 | DX: E11.622 Type 2 diabetes mellitus with other skin ulcer (principal); L98.411 Non-pressure chronic ulcer of buttock limited to breakdown of skin; L89.313 Pressure ulcer of right buttock, stage 3; L89.894 Pressure ulcer of other site, stage 4; R60.9 Edema, unspecified; G82.21 Paraplegia, complete; I95.9 Hypotension, unspecified; Z79.84 Long term (current) use of oral hypoglycemic drugs; Z87.891 Personal history of nicotine dependence ==

== ENCOUNTER → 2017-11-10 | Outpatient (CLI) | payer OTHER, BC | LOC: HYPER 07:03 | DX: L89.313 Pressure ulcer of right buttock, stage 3 (principal); I95.9 Hypotension, unspecified; G82.21 Paraplegia, complete; Z87.891 Personal history of nicotine dependence; Z79.84 Long term (current) use of oral hypoglycemic drugs ==

== ENCOUNTER → 2018-07-19 | Outpatient (CLI) | payer OTHER, BC ==
[~2018-07-19] VITALS: Ht 172.7 cm; Wt 77.1 kg
[~2018-07-19] MED LIST changes: +ASPIR 8181 MG PO; +BACLOFEN PUMP INTRATHECA; +DUOFER 28 MG TA28 MG PO; +FLONASE 0.05%50 MCG NASAL; +LIORESAL 10 MG10 MG PO; +STOOL SOFTENER100 MG PO
--- NOTE | 2018-07-20 09:04 | O ---
[facility] Mara Baer [place] [address] OPERATIVE REPORT Name: BLESSING MARTINEZ Room #: [facility]#: [id number] Admission: 07/19/18 Attend Phys: Harman Davis MD, Discharge: Date of : 44 Report #: [id number] THIS REPORT FOR: //name// CC: Harman Waltonyelena Shelby DATE OF SERVICE: 07/19/2018 PREOPERATIVE DIAGNOSES: 1. Indwelling PEG tube with resolved dysphagia. 2. Healed stage 4 sacral ischial decubitus wounds. POSTOPERATIVE DIAGNOSES: 1. Indwelling PEG tube with resolved dysphagia. 2. Healed stage 4 sacral ischial decubitus wounds. 3. Desire for PEG tube removal. PROCEDURE PERFORMED: Thorough esophagogastroduodenoscopy (EGD) with endoscopic removal of indwelling percutaneous endoscopic gastrostomy (PEG) tube. SURGEON: Harman Davis MD TANK CREWMEMBER: None. ANESTHESIA: Monitored anesthesia care. ESTIMATED BLOOD LOSS: None. COMPLICATIONS: None. SPECIMENS: PEG tube. INDICATIONS: The patient is a 78-year-old male who has resolved dysphagia and improved severe protein-calorie malnutrition with a healed sacral ischial decubitus wound and as he has not used his PEG tube for several months, desires removal. The patient is on an aspirin and blood thinners and has refused traumatic removal through the abdominal wall and as such, indication was for the endoscopic removal today. DESCRIPTION OF PROCEDURE: After explaining the risks, benefits and alternatives of the procedure with the patient in detail and obtaining consent, the patient was brought to the endoscopy suite supine on his hospital cart. After conducting a thorough timeout procedure, verifying correct patient and procedure, the patient was given monitored anesthesia care. Once adequate anesthesia was obtained, his SCDs were hooked up to pneumatic compression device and he was given monitored anesthesia care. The patient's abdomen was exposed [address] [address] OPERATIVE REPORT Name: BLESSING MARTINEZ Room #: [facility]#: [id number] Admission: 07/19/18 Attend Phys: Harman Davis MD, Discharge: Date of : 42 Report #: [id number] and the TOMODOn upper endoscope was used to intubate the oropharynx with ease. The scope was advanced to second portion of duodenum where slow careful withdrawal showed no evidence of duodenitis, gastritis, esophagitis, mass lesions or ulcerations. Retroflexion view of the scope showed a small hiatal hernia. The scope was straightened out, looking at the internal bumper from the PEG tube. The external flange was loosened and a loop snare was placed on the EGD scope and was used to lasso the internal bumper. The PEG tube was then pulled up and cut at the skin level with scissors, releasing the internal bumper which was maintained control with the loop snare. The entire endoscope was removed via the oropharynx, bringing the internal bumper with it. The PEG tube was removed in full. The scope was advanced back into the gastric lumen, where the stomach was fully desufflated and then removed completing the procedure. At the end of the procedure, all instrument, needle and sponge counts were correct. The patient tolerated the procedure without incident, was awakened in the endoscopy suite and transitioned to the recovery room in stable condition with no apparent complications. <ELECTRONICALLY SIGNED> By: Harman Davis MD, FACS 07/20/18 0904 0945 1000 Harman Davis MD, FACS /nt
== END | disposition home or self-care (01) ==
LOC: GI 06:42
DX: Z43.1 Encounter for attention to gastrostomy (principal); R13.10 Dysphagia, unspecified; K21.9 Gastro-esophageal reflux disease without esophagitis; E11.9 Type 2 diabetes mellitus without complications; E78.00 Pure hypercholesterolemia, unspecified; E78.5 Hyperlipidemia, unspecified; G82.50 Quadriplegia, unspecified; Z79.82 Long term (current) use of aspirin; Z79.01 Long term (current) use of anticoagulants; Z91.040 Latex allergy status; Z87.891 Personal history of nicotine dependence; Z98.890 Other specified postprocedural states; Z85.828 Personal history of other malignant neoplasm of skin; Z98.52 Vasectomy status; Z98.0 Intestinal bypass and anastomosis status; Z79.899 Other long term (current) drug therapy
CPT/HCPCS: 62110; 62900

== ENCOUNTER → 2021-02-10 | Outpatient (CLI) | payer OTHER, BC | LOC: HYPER 08:05 | PROVIDERS: ATTEND Emergency Medicine | DX: E11.622 Type 2 diabetes mellitus with other skin ulcer (principal); L89.322 Pressure ulcer of left buttock, stage 2; L98.411 Non-pressure chronic ulcer of buttock limited to breakdown of skin; R60.9 Edema, unspecified; G82.20 Paraplegia, unspecified; I95.9 Hypotension, unspecified; F41.9 Anxiety disorder, unspecified; Z87.891 Personal history of nicotine dependence; Z79.82 Long term (current) use of aspirin ==

== ENCOUNTER → 2021-04-01 | Outpatient (CLI) | payer OTHER, BC | LOC: HYPER 09:34 | PROVIDERS: ATTEND Emergency Medicine | DX: E11.622 Type 2 diabetes mellitus with other skin ulcer (principal); L89.322 Pressure ulcer of left buttock, stage 2; L98.411 Non-pressure chronic ulcer of buttock limited to breakdown of skin; R60.9 Edema, unspecified; G82.20 Paraplegia, unspecified; I95.9 Hypotension, unspecified; F41.9 Anxiety disorder, unspecified; Z87.891 Personal history of nicotine dependence; Z79.82 Long term (current) use of aspirin ==

== ENCOUNTER → 2021-04-07 | Outpatient (CLI) | payer OTHER, BC | LOC: HYPER 14:51 | PROVIDERS: ATTEND Emergency Medicine | DX: E11.622 Type 2 diabetes mellitus with other skin ulcer (principal); L89.323 Pressure ulcer of left buttock, stage 3; L98.411 Non-pressure chronic ulcer of buttock limited to breakdown of skin; G82.20 Paraplegia, unspecified; I95.9 Hypotension, unspecified; R60.9 Edema, unspecified; L84 Corns and callosities; G82.50 Quadriplegia, unspecified; F41.9 Anxiety disorder, unspecified; Z87.891 Personal history of nicotine dependence; Z79.82 Long term (current) use of aspirin; Z79.899 Other long term (current) drug therapy ==

== ENCOUNTER → 2021-04-16 | Outpatient (CLI) | payer OTHER, BC | LOC: HYPER 13:44 | PROVIDERS: ATTEND Emergency Medicine | DX: T81.89XA Other complications of procedures, not elsewhere classified, initial encounter (principal); L89.322 Pressure ulcer of left buttock, stage 2; L98.411 Non-pressure chronic ulcer of buttock limited to breakdown of skin; S80.921A Unspecified superficial injury of right lower leg, initial encounter; L84 Corns and callosities; G82.20 Paraplegia, unspecified; I95.9 Hypotension, unspecified; R60.9 Edema, unspecified; R56.9 Unspecified convulsions; G82.50 Quadriplegia, unspecified; F41.9 Anxiety disorder, unspecified; Z85.828 Personal history of other malignant neoplasm of skin; Z87.891 Personal history of nicotine dependence; Z93.3 Colostomy status; Z79.82 Long term (current) use of aspirin; Z79.899 Other long term (current) drug therapy; X58.XXXA Exposure to other specified factors, initial encounter; Y83.8 Other surgical procedures as the cause of abnormal reaction of the patient, or of later complication, without mention of misadventure at the time of the procedure; Y92.238 Other place in hospital as the place of occurrence of the external cause; Y93.89 Activity, other specified; Y92.89 Other specified places as the place of occurrence of the external cause; Y99.8 Other external cause status ==